=== PATIENT | female | born 1975 | race Caucasian/White ===

== ENCOUNTER 2022-09-17 18:53 | Emergency (ER) | payer BC, MEDICAID ==
[2022-09-17 19:36] LABS: ESTIMATED GFR 106 mL/min (>60)
[2022-09-17 21:42] LABS: CORONAVIRUS COVID-19 NAA NEGATIVE (NEGATIVE)
[2022-09-17] MEDS ORDERED: Ketorolac 30 MG/ML SDV IM ONE (21:53)
[2022-09-17] MEDS ORDERED: Potassium Chloride 20 MEQ Tab.ER PO ONE (21:56)
== END 2022-09-17 22:31 | disposition home or self-care (01) ==
LOC: FB.ED 18:53
DX: R09.1 Pleurisy (principal); E87.6 Hypokalemia; Z88.8 Allergy status to other drugs, medicaments and biological substances; Z20.822 Contact with and (suspected) exposure to COVID-19
CPT/HCPCS: 0241U; 36415; 71046; 80053; 81003; 84484; 85025; 85379; 86140; 93005; 96372; 99285; A9270; J1885

== ENCOUNTER 2024-01-27 09:21 | Day surgery (SDC) | payer BC ==
[~2024-01-27 09:21] MED LIST: Sodium Chloride 0.9% 10 ML Syringe FLUSH PRN
[2024-01-27] MEDS ORDERED: Propofol 200 MG/20 ML SDV IV ONE (09:22)
[2024-01-27] MEDS ORDERED: Glycopyrrolate 0.2 MG/ML 5 ML MDV IV ONE (09:22)
[2024-01-27] MEDS ORDERED: Lidocaine 2% 100 MG/5 ML Syringe IVPUSH ONE (09:22)
[2024-01-27] MEDS ORDERED: Midazolam 1 MG/ML 2 ML SDV IV ONE (09:22)
[2024-01-27] MEDS: Lactated Ringers 1,000 ML IV SCH (10:30)
== END 2024-01-27 11:53 | disposition home or self-care (01) ==
LOC: FB.SDS 09:21
PROVIDERS: ATTEND Surgery
DX: K21.00 Gastro-esophageal reflux disease with esophagitis, without bleeding (principal); K29.50 Unspecified chronic gastritis without bleeding; K44.9 Diaphragmatic hernia without obstruction or gangrene; I10 Essential (primary) hypertension; F41.9 Anxiety disorder, unspecified; F32.A Depression, unspecified; E78.2 Mixed hyperlipidemia; F17.210 Nicotine dependence, cigarettes, uncomplicated; Z79.899 Other long term (current) drug therapy; Z91.030 Bee allergy status; Z91.040 Latex allergy status; Z91.010 Allergy to peanuts
CPT/HCPCS: 00731; 43239; 88305; 88342; J2250; J2704; J3490; J7120